=== PATIENT | female | born 1925 | race Caucasian/White ===

== ENCOUNTER 2016-09-15 12:42 | Inpatient (IN) | payer OTHER ==
[~2016-09-15] VITALS: Ht 152.4 cm; Wt 55.1 kg
[~2016-09-15 12:42] MED LIST: ACET-1757 PO; ACET650S12 PR; ACID1TAB3 PO; ALEN70TA5 PO; AMOX1TAB64 PO; ASPI-496 PO; ASPI-515 PO; BISA10SU65 PR; CAPT25TA3 PO; DIPH1TAB6 PO; DOCU-30 PO; ERGO500017 PO; ESTR0.5T PO; ESTR30CR VG; FLUR30CA3 PO; FURO20TA3 PO; HYDR-3138 PO; LACT10SO28 PO; LAMO25TA PO; LAMO25TA13 PO; LAMO25TB PO; LEVO250T23 PO; LEVO250T8 PO; LEVO50TA5 PO; METO25TA91 PO; MULT1TAB60 PO; OXYC-302 PO; PANT40TA5 PO; PENI500T PO; PIPE2.255 IV; POLY17PO5 PO; ROBITUSSIN DM PO; SENN1TAB7 PO; SOLI5TAB PO; TRAM50TA2 PO
[2016-09-15] MEDS ORDERED: HYDR-3240 PO (13:35)
[2016-09-15] MEDS ORDERED: SULF1TAB3 PO (13:35)
[2016-09-15] MEDS ORDERED: FLUR30CA3 PO (13:35)
[2016-09-15] MEDS ORDERED: GABA100C8 PO (13:35)
[2016-09-15] MEDS ORDERED: NYST1000 PO (13:35)
[2016-09-15] MEDS ORDERED: SODIUM CHLORIDE 0.9% 1,000ML IVBOLUS ONE (14:00)
[2016-09-15] MEDS ORDERED: SODIUM CHLORIDE FLUSH 10ML SYR IVF ONE (14:00)
[2016-09-15] MEDS ORDERED: CEFTRIAXONE PMX 1GM/50ML 50 ML ONE (14:15)
[2016-09-15] MEDS ORDERED: CEFTRIAXONE PMX 1GM/50ML 50 ML IVPB ONE (14:30)
[2016-09-15 14:36] LABS: HEMOGLOBIN 9.4 g/dL (11.7-16.4)
[2016-09-15 14:49] LABS: BLOOD UREA NITROGEN 35 mg/dL (7-18)
[2016-09-15 14:55] LABS: ASPARTATE AMINO TRANSFERASE 22 U/L (15-37)
[2016-09-15 14:56] LABS: IS PT STATUS REG ER OR PRE ER? YES
[2016-09-15 16:23] VITALS: BP 160/71
[2016-09-15] MEDS ORDERED: DOCUSATE 100 MG CAPSULE PO PRN (17:30)
[2016-09-15] MEDS ORDERED: ONDANSETRON 2MG/ML, 2ML IVP PRN (17:30)
[2016-09-15] MEDS ORDERED: POLYETHYLENE GLYCOL 17 GM PACKET PO PRN (17:30)
[2016-09-15] MEDS ORDERED: ACETAMINOPHEN 325 MG TABLET PO PRN (17:30)
[2016-09-15] MEDS ORDERED: BISACODYL 10 MG SUPP PR PRN (17:30)
[2016-09-15] MEDS ORDERED: ONDANSETRON ODT 4 MG PO PRN (17:30)
[2016-09-15 20:25] VITALS: BP 148/66
[2016-09-15] MEDS: METRONIDAZOLE PMX 500MG/100ML 100 ML IV SCH (20:52)
[2016-09-15] MEDS: FLURAZEPAM 15 MG CAPSULE PO SCH (20:52)
[2016-09-15] MEDS: GABAPENTIN 300 MG CAPSULE PO SCH (20:52)
[2016-09-15] MEDS: HEPARIN 5,000 UNITS/ML, 1ML SQ SCH (20:53)
[2016-09-15] MEDS: CAPTOPRIL 25 MG TABLET PO SCH (22:04)
[2016-09-16 00:19] VITALS: BP 151/73
[2016-09-16] MEDS: GABAPENTIN 300 MG CAPSULE PO SCH ×4 (05:37→20:23)
[2016-09-16] MEDS: METRONIDAZOLE PMX 500MG/100ML 100 ML IV SCH ×3 (05:37→22:07)
[2016-09-16] MEDS: HEPARIN 5,000 UNITS/ML, 1ML SQ SCH ×3 (05:37→20:24)
[2016-09-16] MEDS: LEVOTHYROXINE 50 MCG TABLET PO SCH (05:38)
[2016-09-16 05:54] LABS: HEMOGLOBIN 9.5 g/dL (11.7-16.4)
[2016-09-16 06:05] LABS: BLOOD UREA NITROGEN 36 mg/dL (7-18)
[2016-09-16 06:59] VITALS: BP 159/61
[2016-09-16] MEDS: CAPTOPRIL 25 MG TABLET PO SCH ×2 (10:29→20:23)
[2016-09-16] MEDS: MULTIVITAMIN 1 TABLET PO SCH (10:29)
[2016-09-16] MEDS: METOPROLOL SUCCINATE 25 MG TAB.ER.24H PO SCH (10:30)
[2016-09-16 13:42] VITALS: BP 143/68
[2016-09-16 15:32] VITALS: BP 117/58
[2016-09-16] MEDS: CEFTRIAXONE PMX 1GM/50ML 50 ML IV SCH (18:15)
[2016-09-16 19:56] VITALS: BP 148/63
[2016-09-16] MEDS: FLURAZEPAM 15 MG CAPSULE PO SCH (20:24)
[2016-09-17 02:26] VITALS: BP 131/68
[2016-09-17] MEDS: HEPARIN 5,000 UNITS/ML, 1ML SQ SCH ×3 (05:18→20:25)
[2016-09-17] MEDS: METRONIDAZOLE PMX 500MG/100ML 100 ML IV SCH ×3 (05:18→21:51)
[2016-09-17] MEDS: LEVOTHYROXINE 50 MCG TABLET PO SCH (05:46)
[2016-09-17] MEDS: GABAPENTIN 300 MG CAPSULE PO SCH ×4 (05:46→20:25)
[2016-09-17 06:01] LABS: BLOOD UREA NITROGEN 35 mg/dL (7-18)
[2016-09-17 08:20] VITALS: BP 136/53
[2016-09-17] MEDS: CAPTOPRIL 25 MG TABLET PO SCH ×2 (09:00→20:25)
[2016-09-17] MEDS: METOPROLOL SUCCINATE 25 MG TAB.ER.24H PO SCH (09:00)
[2016-09-17] MEDS: MULTIVITAMIN 1 TABLET PO SCH (11:44)
[2016-09-17] MEDS: METOPROLOL TARTRATE 25 MG TABLET PO SCH ×2 (11:44→18:07)
[2016-09-17 13:15] VITALS: BP 134/70
[2016-09-17 13:30] VITALS: BP 134/70
[2016-09-17] MEDS: CEFTRIAXONE PMX 1GM/50ML 50 ML IV SCH (18:09)
[2016-09-17 19:23] VITALS: BP 139/56
[2016-09-17] MEDS: FLURAZEPAM 15 MG CAPSULE PO SCH (20:25)
[2016-09-18 03:07] VITALS: BP 160/81
[2016-09-18] MEDS: METRONIDAZOLE PMX 500MG/100ML 100 ML IV SCH ×2 (05:15→12:52)
[2016-09-18] MEDS: HEPARIN 5,000 UNITS/ML, 1ML SQ SCH ×3 (05:15→20:38)
[2016-09-18 05:59] LABS: HEMOGLOBIN 9.7 g/dL (11.7-16.4)
[2016-09-18] MEDS: GABAPENTIN 300 MG CAPSULE PO SCH ×4 (06:01→20:31)
[2016-09-18] MEDS: METOPROLOL TARTRATE 25 MG TABLET PO SCH ×2 (06:01→17:14)
[2016-09-18] MEDS: LEVOTHYROXINE 50 MCG TABLET PO SCH ×2 (06:01→08:07)
[2016-09-18 06:21] LABS: BLOOD UREA NITROGEN 33 mg/dL (7-18)
[2016-09-18 06:22] LABS: ASPARTATE AMINO TRANSFERASE 14 U/L (15-37)
[2016-09-18] MEDS: CAPTOPRIL 25 MG TABLET PO SCH ×2 (08:07→20:38)
[2016-09-18] MEDS: MULTIVITAMIN 1 TABLET PO SCH (08:07)
[2016-09-18] MEDS ORDERED: PHARMACY MAY ADJ FOR RENAL FX MC PRN (08:30)
[2016-09-18 08:53] VITALS: BP 148/66
[2016-09-18] MEDS: VANCOMYCIN 50 MG/ML ORAL SUSP PO SCH ×3 (09:39→20:31)
[2016-09-18 13:57] VITALS: BP 141/61
[2016-09-18] MEDS ORDERED: DAPTOMYCIN 240 MG in SODIUM CHLORIDE 0.9% 100 ML IVPB SCH (16:30)
[2016-09-18] MEDS: MEROPENEM 500 MG in SODIUM CHLORIDE 0.9% 100 ML IV SCH (16:30)
[2016-09-18] MEDS: FLURAZEPAM 15 MG CAPSULE PO SCH (20:31)
[2016-09-18 20:52] VITALS: BP 167/69
[2016-09-19 01:45] VITALS: BP 156/74
[2016-09-19] MEDS: VANCOMYCIN 50 MG/ML ORAL SUSP PO SCH ×4 (04:19→20:30)
[2016-09-19] MEDS: MEROPENEM 500 MG in SODIUM CHLORIDE 0.9% 100 ML IV SCH ×2 (04:19→17:27)
[2016-09-19] MEDS: HEPARIN 5,000 UNITS/ML, 1ML SQ SCH ×3 (05:00→21:00)
[2016-09-19] MEDS: GABAPENTIN 300 MG CAPSULE PO SCH ×4 (06:00→21:02)
[2016-09-19 08:28] VITALS: BP 155/73
[2016-09-19] MEDS: MULTIVITAMIN 1 TABLET PO SCH (09:00)
[2016-09-19] MEDS: METOPROLOL TARTRATE 25 MG TABLET PO SCH ×2 (09:45→17:36)
[2016-09-19] MEDS: LEVOTHYROXINE 50 MCG TABLET PO SCH (09:45)
[2016-09-19] MEDS: CAPTOPRIL 25 MG TABLET PO SCH ×2 (09:46→21:02)
[2016-09-19] MEDS: AMPICILLIN 1 GM in SODIUM CHLORIDE 0.9% 50 ML IV SCH ×2 (11:31→22:36)
[2016-09-19 13:50] VITALS: BP 149/68
[2016-09-19 15:03] LABS: C-REACTIVE PROTEIN, QUANT 1.2 mg/dL (0.02-0.49)
[2016-09-19 19:44] VITALS: BP 154/72
[2016-09-19] MEDS: HYDROcodone/APAP 5/325 TABLET PO PRN (21:02)
[2016-09-19] MEDS: FLURAZEPAM 15 MG CAPSULE PO SCH (21:28)
[2016-09-20] MEDS: VANCOMYCIN 50 MG/ML ORAL SUSP PO SCH ×4 (02:02→22:17)
[2016-09-20 02:04] VITALS: BP 152/65
[2016-09-20] MEDS: MEROPENEM 500 MG in SODIUM CHLORIDE 0.9% 100 ML IV SCH ×2 (04:36→16:33)
[2016-09-20] MEDS: HEPARIN 5,000 UNITS/ML, 1ML SQ SCH ×4 (04:36→22:17)
[2016-09-20 05:46] LABS: BLOOD UREA NITROGEN 30 mg/dL (7-18)
[2016-09-20] MEDS: GABAPENTIN 300 MG CAPSULE PO SCH ×4 (06:04→22:18)
[2016-09-20] MEDS: LEVOTHYROXINE 50 MCG TABLET PO SCH (06:05)
[2016-09-20] MEDS: METOPROLOL TARTRATE 25 MG TABLET PO SCH ×2 (06:05→16:33)
[2016-09-20 07:58] VITALS: BP 148/63
[2016-09-20] MEDS: CAPTOPRIL 25 MG TABLET PO SCH ×2 (09:46→22:18)
[2016-09-20] MEDS: MULTIVITAMIN 1 TABLET PO SCH (09:46)
[2016-09-20] MEDS: AMPICILLIN 1 GM in SODIUM CHLORIDE 0.9% 50 ML IV SCH ×2 (10:00→22:16)
[2016-09-20 14:30] VITALS: BP 150/77
[2016-09-20 19:28] VITALS: BP 140/72
[2016-09-20] MEDS: FLURAZEPAM 15 MG CAPSULE PO SCH (22:18)
[2016-09-21 01:29] VITALS: BP 155/70
[2016-09-21] MEDS: VANCOMYCIN 50 MG/ML ORAL SUSP PO SCH ×4 (02:34→21:03)
[2016-09-21] MEDS: HEPARIN 5,000 UNITS/ML, 1ML SQ SCH ×3 (05:09→21:02)
[2016-09-21] MEDS: MEROPENEM 500 MG in SODIUM CHLORIDE 0.9% 100 ML IV SCH ×2 (05:09→16:39)
[2016-09-21] MEDS: GABAPENTIN 300 MG CAPSULE PO SCH ×4 (05:09→21:02)
[2016-09-21] MEDS: LEVOTHYROXINE 50 MCG TABLET PO SCH (05:10)
[2016-09-21] MEDS: METOPROLOL TARTRATE 25 MG TABLET PO SCH ×2 (05:10→17:54)
[2016-09-21 07:08] VITALS: BP 152/66
[2016-09-21] MEDS: MULTIVITAMIN 1 TABLET PO SCH (09:46)
[2016-09-21] MEDS: CAPTOPRIL 25 MG TABLET PO SCH ×2 (09:46→21:03)
[2016-09-21] MEDS: AMPICILLIN 1 GM in SODIUM CHLORIDE 0.9% 50 ML IV SCH ×2 (11:05→23:25)
[2016-09-21 15:27] VITALS: BP 152/69
[2016-09-21] MEDS: HYDROcodone/APAP 5/325 TABLET PO PRN ×2 (17:15→23:25)
[2016-09-21 20:30] VITALS: BP 149/66
[2016-09-21] MEDS: FLURAZEPAM 15 MG CAPSULE PO SCH (21:02)
[2016-09-22] MEDS: VANCOMYCIN 50 MG/ML ORAL SUSP PO SCH ×2 (03:02→08:53)
[2016-09-22 03:23] VITALS: BP 126/64
[2016-09-22] MEDS: MEROPENEM 500 MG in SODIUM CHLORIDE 0.9% 100 ML IV SCH ×2 (05:02→16:29)
[2016-09-22] MEDS: GABAPENTIN 300 MG CAPSULE PO SCH ×3 (05:18→16:00)
[2016-09-22] MEDS: LEVOTHYROXINE 50 MCG TABLET PO SCH (05:19)
[2016-09-22] MEDS: METOPROLOL TARTRATE 25 MG TABLET PO SCH ×2 (05:19→18:00)
[2016-09-22] MEDS: HEPARIN 5,000 UNITS/ML, 1ML SQ SCH ×2 (05:19→13:41)
[2016-09-22 05:50] LABS: BLOOD UREA NITROGEN 33 mg/dL (7-18)
[2016-09-22 07:03] VITALS: BP 128/73
[2016-09-22] MEDS: MULTIVITAMIN 1 TABLET PO SCH (08:52)
[2016-09-22] MEDS: CAPTOPRIL 25 MG TABLET PO SCH (08:52)
[2016-09-22] MEDS: AMPICILLIN 1 GM in SODIUM CHLORIDE 0.9% 50 ML IV SCH (11:03)
[2016-09-22] MEDS ORDERED: MERO500V3 IV (13:21)
[2016-09-22] MEDS ORDERED: AMPI1VIA3 IV (13:21)
[2016-09-22] MEDS ORDERED: VANC125C11 PO (13:21)
[2016-09-22 13:25] VITALS: BP 124/76
[2016-09-22] MEDS ORDERED: VANCOMYCIN 50 MG/ML ORAL SUSP PO SCH (14:30)
[2016-09-22 18:23] VITALS: BP 129/67
== END 2016-09-22 18:42 | DRG 871 ==
LOC: ED 14:28 → EDIP 14:29 → ED 14:41 → 3NE 15:52
PROVIDERS: ADMIT Internal Medicine; ATTEND Internal Medicine
PROC: 0T9B70Z Drainage of Bladder with Drainage Device, Via Natural or Artificial Opening (ICD-10-PCS; principal; 2016-09-15)
DX: A41.59 Other Gram-negative sepsis (principal); J69.0 Pneumonitis due to inhalation of food and vomit; J15.0 Pneumonia due to Klebsiella pneumoniae; N18.4 Chronic kidney disease, stage 4 (severe); A04.7 Enterocolitis due to Clostridium difficile; N39.0 Urinary tract infection, site not specified; E87.1 Hypo-osmolality and hyponatremia; I13.0 Hypertensive heart and chronic kidney disease with heart failure and stage 1 through stage 4 chronic kidney disease, or unspecified chronic kidney disease; I50.42 Chronic combined systolic (congestive) and diastolic (congestive) heart failure; R62.7 Adult failure to thrive; L89.301 Pressure ulcer of unspecified buttock, stage 1; B96.1 Klebsiella pneumoniae [K. pneumoniae] as the cause of diseases classified elsewhere; M19.90 Unspecified osteoarthritis, unspecified site; G89.29 Other chronic pain; E87.6 Hypokalemia; E03.9 Hypothyroidism, unspecified; D64.9 Anemia, unspecified; G40.909 Epilepsy, unspecified, not intractable, without status epilepticus; M48.06 Spinal stenosis, lumbar region; M81.0 Age-related osteoporosis without current pathological fracture; Z66 Do not resuscitate; I35.1 Nonrheumatic aortic (valve) insufficiency; I71.2 Thoracic aortic aneurysm, without rupture; I34.0 Nonrheumatic mitral (valve) insufficiency; Z88.2 Allergy status to sulfonamides; Z90.710 Acquired absence of both cervix and uterus; Z90.49 Acquired absence of other specified parts of digestive tract; Z88.8 Allergy status to other drugs, medicaments and biological substances; Z87.440 Personal history of urinary (tract) infections; R13.10 Dysphagia, unspecified
CPT/HCPCS: 36415; 70450; 71010; 80048; 80053; 81001; 82550; 83605; 84443; 84484; 85025; 85651; 86140; 87040; 87077; 87086; 87186; 87324; 87493; 93005; 96365; J0290; J0696; J0878; J1644; J2185; J3370; J7030

== ENCOUNTER → 2016-09-29 | Outpatient (CLI) | payer OTHER ==
[~2016-09-29] MED LIST changes: +AMPI1VIA3 IV; +GABA100C8 PO; +HYDR-3240 PO; +MERO500V3 IV; +NYST1000 PO; +SULF1TAB3 PO; +VANC125C11 PO
== END | disposition home or self-care (01) ==
LOC: RAD 07:16
PROVIDERS: ATTEND Internal Medicine Geriatric Medicine
DX: N39.3 Stress incontinence (female) (male) (principal); J18.9 Pneumonia, unspecified organism; N39.0 Urinary tract infection, site not specified; I82.B19 Acute embolism and thrombosis of unspecified subclavian vein; I82.210 Acute embolism and thrombosis of superior vena cava
CPT/HCPCS: 36569; 76937; 77001; C1751